=== PATIENT | male | born 1980 | race Caucasian/White ===

== ENCOUNTER 2022-10-09 17:33 | Emergency (ER) | payer SELFPAY ==
[2022-10-09] MEDS ORDERED: Ketorolac 30 MG/ML SDV IM ONE (19:02)
[2022-10-09 19:48] VITALS: BP 200/119; PULSE 70
== END 2022-10-09 20:05 | disposition home or self-care (01) ==
LOC: JP.ED 17:33
DX: K04.7 Periapical abscess without sinus (principal); Z88.1 Allergy status to other antibiotic agents
CPT/HCPCS: 96372; 99282; J1885